=== PATIENT | male | born 1960 | race Caucasian/White ===

== ENCOUNTER 2017-05-04 10:48 | Outpatient (CLI) | payer OTHER, BC | END 2017-05-04 10:49 | disposition critical access hospital (66) | LOC: EMS 10:48 | PROVIDERS: ATTEND Surgery | DX: R07.9 Chest pain, unspecified (principal); V49.40XA Driver injured in collision with unspecified motor vehicles in traffic accident, initial encounter; Y92.414 Local residential or business street as the place of occurrence of the external cause | CPT/HCPCS: A0425; A0429 ==

== ENCOUNTER 2017-05-04 11:03 | Emergency (ER) | payer OTHER, BC ==
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
[2017-05-04] MEDS ORDERED: IBUPROFEN 600 MG TABLET PO STA (11:28)
[2017-05-04] MEDS ORDERED: ACETAMINOPHEN 325 MG TABLET PO STA (11:29)
[2017-05-04] MEDS ORDERED: IBUPROFEN 600 MG TABLET PO ONE (11:40)
[2017-05-04] MEDS ORDERED: ACETAMINOPHEN 325 MG TABLET PO ONE (11:40)
--- NOTE | 2017-05-04 12:38 | XRAY Preliminary Report ---
Exam: XR Chest 2 View PA/LAT IMPRESSION: Minimal bibasilar atelectasis, not present 05/03/2016. Otherwise no acute abnormality or change from the prior examination. [facility] SITE ID: [id number]
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
--- NOTE | 2017-05-04 12:41 | XRAY Preliminary Report ---
Exam: XR Cervical Spine 2 View IMPRESSION: Normal examination of the cervical spine. Bilateral carotid atherosclerosis. [facility] SITE ID: [id number]
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
[2017-05-04 12:53] VITALS: BP 146/87
== END 2017-05-04 13:14 | disposition home or self-care (01) ==
LOC: EDUNIT# → ED 11:03
DX: S20.219A Contusion of unspecified front wall of thorax, initial encounter (principal); S80.212A Abrasion, left knee, initial encounter; M54.2 Cervicalgia; V43.52XA Car driver injured in collision with other type car in traffic accident, initial encounter; W22.11XA Striking against or struck by driver side automobile airbag, initial encounter; Y92.410 Unspecified street and highway as the place of occurrence of the external cause; I10 Essential (primary) hypertension; E11.9 Type 2 diabetes mellitus without complications; Z79.4 Long term (current) use of insulin; Z79.82 Long term (current) use of aspirin
CPT/HCPCS: 71020; 72040; 99283; 99284; A9270

== ENCOUNTER 2017-05-20 10:54 | Outpatient (CLI) | payer BC | END 2017-05-20 10:55 | disposition critical access hospital (66) | LOC: EMS 10:54 | PROVIDERS: ATTEND Surgery | DX: R07.9 Chest pain, unspecified (principal) | CPT/HCPCS: A0425; A0429 ==

== ENCOUNTER 2017-05-20 11:21 | Emergency (ER) | payer BC ==
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
[2017-05-20 12:02] LABS: BASOPHILS % (AUTO) 0.9 %; EOSINOPHILS # (AUTO) 0.4 10^3/uL (0.0-0.7); EOSINOPHILS % (AUTO) 7.6 %; HCT - HEMATOCRIT 42.9 % (42.0-52.0); HGB - HEMOGLOBIN 14.8 g/dL (14.0-18.0); LYMPHOCYTES # (AUTO) 1.7 10^3/uL (1.5-3.5); LYMPHOCYTES % (AUTO) 32.7 %; MEAN CORPUSCULAR HEMOGLOBIN 31.5 pg (27.0-31.0); MEAN CORPUSCULAR HGB CONC 34.4 g/dL (32.0-36.0); MEAN CORPUSCULAR VOLUME 91.5 fL (80.0-94.0); MEAN PLATELET VOLUME 6.9 fL (7.4-11.4); MONOCYTES # (AUTO) 0.3 10^3/uL (0.0-1.0); MONOCYTES % (AUTO) 6.4 %; NEUTROPHILS # (AUTO) 2.7 10^3/uL (1.5-6.6); NEUTROPHILS % (AUTO) 52.4 %; RED BLOOD COUNT 4.69 10^6/uL (4.70-6.10); RED CELL DISTRIBUTION WIDTH 12.4 % (12.0-15.0); UNCORRECTED WHITE BLOOD COUNT 5.1 x10^3/uL; WHITE BLOOD COUNT 5.1 x10^3/uL (4.8-10.8)
[2017-05-20 12:16] LABS: BILIRUBIN,TOTAL 0.5 mg/dL (0.2-1.0); CALCIUM 9.9 mg/dL (8.5-10.3); POTASSIUM 4.4 mmol/L (3.5-5.0); TOTAL PROTEIN 7.7 g/dL (6.7-8.2)
--- NOTE | 2017-05-20 12:40 | XRAY Preliminary Report ---
Exam: XR Chest 1 View IMPRESSION: No acute intrathoracic plain film abnormality. [facility] SITE ID: [id number]
--- NOTE | 2017-05-20 12:42 | XRAY Report ---
EXAM: CHEST RADIOGRAPHY EXAM DATE: 05/20/2017 11:57 AM. CLINICAL HISTORY: Chest pain. COMPARISON: 05/04/2017. TECHNIQUE: 1 view. FINDINGS: Lungs/Pleura: No focal opacities evident. No pleural effusion. No pneumothorax. Mediastinum: Within exam limitations, cardiomediastinal contour is normal. Other: None. IMPRESSION: No acute intrathoracic plain film abnormality. [facility] Referring Provider Line: [phone] SITE ID: [id number]
[2017-05-20] MEDS ORDERED: INSULIN REGULAR HUMAN 100 UNIT/1 ML 10 ML MDV SUBQ STA (15:50)
[2017-05-20] MEDS ORDERED: INSULIN REGULAR HUMAN 100 UNIT/1 ML 10 ML MDV ONE (16:18)
[2017-05-20] MEDS ORDERED: clonazePAM 0.5 MG TABLET PO STA (22:00)
[2017-05-20] MEDS ORDERED: amLODIPine 5 MG TABLET PO STA (22:00)
[2017-05-20] MEDS ORDERED: LITHIUM 150 MG CAPSULE PO STA (22:00)
[2017-05-20] MEDS ORDERED: amLODIPine 5 MG TABLET ONE (23:04)
[2017-05-20] MEDS ORDERED: LITHIUM 150 MG CAPSULE PO ONE (23:04)
[2017-05-20] MEDS ORDERED: clonazePAM 0.5 MG TABLET PO ONE (23:04)
[2017-05-20] MEDS ORDERED: INSULIN GLARGINE 300 UNIT/3 ML PEN SUBQ ONE (23:05)
--- NOTE | 2017-05-21 06:51 | ED Physician Documentation ---
ED Addendum - Addendum Addendum: 05/21/17 06:48 Patient accepted at Psych facility but the facility wanted insurance verification prior to his being sent. The insurance company office was closed, with nurse trying to get it done after SW left. Unable to get the verification until insurance office open in the morning. He was Rx his usual nighttime meds. He slept /rested through the night without problems. Will be getting him breakfast.
[2017-05-21] MEDS ORDERED: LISINOPRIL 5 MG TABLET PO STA (07:07)
[2017-05-21] MEDS ORDERED: LISINOPRIL 5 MG TABLET ONE (08:41)
[2017-05-21 11:32] VITALS: BP 144/86
[2017-05-21] MEDS ORDERED: INSULIN GLARGINE 300 UNIT/3 ML PEN SUBQ SCH (21:00)
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
== END 2017-05-21 12:45 ==
LOC: EDUNIT# → ED 11:21
DX: F32.9 Major depressive disorder, single episode, unspecified (principal); S20.219A Contusion of unspecified front wall of thorax, initial encounter; V89.2XXA Person injured in unspecified motor-vehicle accident, traffic, initial encounter; Y92.488 Other paved roadways as the place of occurrence of the external cause; E11.9 Type 2 diabetes mellitus without complications; Z79.4 Long term (current) use of insulin; I10 Essential (primary) hypertension; E78.00 Pure hypercholesterolemia, unspecified; Z87.442 Personal history of urinary calculi; Z79.82 Long term (current) use of aspirin
CPT/HCPCS: 36415; 71010; 80053; 80306; 83690; 84484; 85025; 93005; 96374; 99285; A9270; J1815

== ENCOUNTER 2017-06-09 17:49 | Emergency (ER) | payer BC ==
[2017-06-09] MEDS ORDERED: ONDANSETRON 4 MG/2 ML VIAL IVP STA (18:30)
[2017-06-09] MEDS ORDERED: KETOROLAC 60 MG/2 ML VIAL IVP STA (18:30)
[2017-06-09] MEDS ORDERED: SODIUM CHLORIDE 0.9% 1,000 ML IV ONE (18:30)
[2017-06-09] MEDS ORDERED: HYDROmorphone 1 MG/ML SYRINGE ONE (18:30)
[2017-06-09] MEDS ORDERED: KETOROLAC 30 MG/ML VIAL ONE (18:30)
[2017-06-09] MEDS ORDERED: HYDROmorphone 1 MG/ML SYRINGE IVP STA (18:30)
[2017-06-09] MEDS ORDERED: ONDANSETRON 4 MG/2 ML VIAL ONE (18:30)
[2017-06-09 18:36] LABS: BASOPHILS % (AUTO) 0.3 %; EOSINOPHILS # (AUTO) 0.1 10^3/uL (0.0-0.7); EOSINOPHILS % (AUTO) 1.2 %; HCT - HEMATOCRIT 47.7 % (42.0-52.0); HGB - HEMOGLOBIN 16.3 g/dL (14.0-18.0); LYMPHOCYTES # (AUTO) 1.8 10^3/uL (1.5-3.5); LYMPHOCYTES % (AUTO) 17.6 %; MEAN CORPUSCULAR HEMOGLOBIN 31.5 pg (27.0-31.0); MEAN CORPUSCULAR HGB CONC 34.3 g/dL (32.0-36.0); MEAN CORPUSCULAR VOLUME 91.9 fL (80.0-94.0); MONOCYTES # (AUTO) 0.8 10^3/uL (0.0-1.0); MONOCYTES % (AUTO) 7.8 %; NEUTROPHILS # (AUTO) 7.6 10^3/uL (1.5-6.6); NEUTROPHILS % (AUTO) 73.1 %; RED BLOOD COUNT 5.19 10^6/uL (4.70-6.10); RED CELL DISTRIBUTION WIDTH 12.7 % (12.0-15.0); UNCORRECTED WHITE BLOOD COUNT 10.3 x10^3/uL; WHITE BLOOD COUNT 10.3 x10^3/uL (4.8-10.8)
[2017-06-09 18:51] LABS: ALBUMIN/GLOBULIN RATIO 1.2 (1.0-2.2); BILIRUBIN,TOTAL 0.6 mg/dL (0.2-1.0); CREATININE 1.3 mg/dL (0.6-1.2); POTASSIUM 3.9 mmol/L (3.5-5.0)
--- NOTE | 2017-06-09 18:57 | ED Physician Documentation ---
PD HPI ABD PAIN - Stated complaint Stated Complaint: MALE - Chief complaint Chief Complaint: Abd Pain - History obtained from History obtained from: Patient - History of Present Illness Timing - onset: How many hours ago (3) Timing - duration: Hours (3) Timing - details: Abrupt onset Pain level max: 10 Pain level now: 10 Quality: Aching, Pain Radiation: Other (L testicle) Improved by: Other (nothing) Worsened by: Other (nothing) Associated symptoms: Nausea. No: Fever, Vomiting, Hematemesis, Diarrhea, Constipation, Melena, Hematochezia, Dysuria Similar symptoms before: Diagnosis (kidney stones) Recently seen: Not recently seen Review of Systems Constitutional: denies: Fever, Chills Respiratory: denies: Cough GI: denies: Vomiting Skin: denies: Rash Musculoskeletal: denies: Neck pain, Back pain Neurologic: denies: Focal weakness, Numbness, Headache PD PAST MEDICAL HISTORY - Past Medical History Past Medical History: Yes Cardiovascular: Hypertension, High cholesterol Endocrine/Autoimmune: Type 2 diabetes : Kidney stones Psych: Depression, Anxiety - Past Surgical History Past Surgical History: Yes HEENT: Tonsil/Adenoidectomy - Present Medications Home Medications: Ambulatory Orders Medication Instructions Recorded Confirmed Acetaminophen [Tylenol] 650 mg PO BID 11/15/13 05/20/17 Aspirin [Brittaney] 162 mg PO ONCE 11/15/13 05/20/17 Atorvastatin Calcium 40 mg PO DAILY 11/15/13 05/20/17 FLUoxetine [PROzac] 40 mg PO DAILY 11/15/13 05/20/17 Gemfibrozil [Lopid] 600 mg PO BIDAC 11/15/13 05/20/17 Insulin Glargine,Hum.rec.anlog 100 unit SQ QPM 11/15/13 05/20/17 [Lantus] Lisinopril 20 mg PO DAILY 11/15/13 05/20/17 Loratadine [Claritin] 10 mg PO ONCE 11/15/13 05/20/17 Cholecalciferol [Vitamin D3] 2 cap ORAL DAILY 05/20/17 05/20/17 Clonazepam 1 mg PO DAILY PM 05/20/17 05/20/17 DULoxetine [Cymbalta] 90 mg ORAL DAILY 05/20/17 05/20/17 Fluconazole 100 mg ORAL DAILY 05/20/17 05/20/17 [place] 450 mg ORAL DAILY PM 05/20/17 05/20/17 amLODIPine [Norvasc] 5 mg ORAL DAILY 05/20/17 05/20/17 Ondansetron Odt [Zofran] 4 mg TL Q6H PRN #10 tablet 06/09/17 Oxycodone HCl/Acetaminophen 1 - 2 each PO Q6H PRN #14 tablet 06/09/17 [Percocet 5-325 mg Tablet] - Allergies Allergies/Adverse Reactions: Allergies Allergy/AdvReac Type Severity Reaction Status Date / Time Sulfa (Sulfonamide Allergy Hives Verified 06/09/17 17:59 Antibiotics) metformin AdvReac Unknown Verified 06/09/17 17:59 - Social History Does the pt smoke?: No Smoking Status: Never smoker Does the pt drink ETOH?: No Does the pt have substance abuse?: No - Immunizations Immunizations are current?: No Immunizations: TDAP >10years/unknown - POLST Patient has POLST: No PD ED PE NORMAL - Vitals Vital signs reviewed: Yes - General General: Alert and oriented X 3, No acute distress - HEENT HEENT: Moist mucous membranes - Neck Neck: Supple, no meningeal sign - Cardiac Cardiac: RRR, Strong equal pulses - Respiratory Respiratory: No respiratory distress, Clear bilaterally - Abdomen Abdomen: Soft, Non tender, Non distended - Back Back: No CVA TTP, No spinal TTP - Derm Derm: Warm and dry, No rash - Neuro Neuro: Alert and oriented X 3 - Psych Psych: Normal mood, Normal affect Results - Vitals Vitals: Vital Signs - 24 hr 06/09/17 06/09/17 06/09/17 17:57 18:38 18:58 Temperature 36.6 C Heart Rate 110 H 100 94 Respiratory 20 18 18 Rate Blood Pressure 159/100 H 144/97 H 153/89 H O2 Saturation 100 100 93 06/09/17 21:20 Temperature Heart Rate 86 Respiratory 16 Rate Blood Pressure 126/72 O2 Saturation 99 Oxygen O2 Source Room air - Labs Labs: Laboratory Tests 06/09/17 06/09/17 06/09/17 18:09 18:09 18:58 WBC 10.3 RBC 5.19 Hgb 16.3 Hct 47.7 MCV 91.9 MCH 31.5 H MCHC 34.3 RDW 12.7 Plt Count 301 MPV 7.0 L Neut # 7.6 H Lymph # 1.8 [place] # 0.8 Eos # 0.1 Baso # 0.0 Absolute Nucleated RBC 0.00 Nucleated RBCs 0.0 Sodium 136 Potassium 3.9 Chloride 96 L Carbon Dioxide 29 Anion Gap 11.0 BUN 13 Creatinine 1.3 H Estimated GFR (MDRD) 57 L Glucose 348 H Calcium 10.0 Total Bilirubin 0.6 AST 18 ALT 22 Alkaline Phosphatase 147 H Total Protein 8.0 Albumin 4.4 Globulin 3.6 Albumin/Globulin Ratio 1.2 Lipase 19 L Urine Color YELLOW Urine Clarity HAZY Urine pH 5.5 Ur Specific [place] 1.025 Urine Protein 30 H Urine Glucose (UA) 500 H Urine Ketones TRACE Urine Occult Blood NEGATIVE Urine Nitrite NEGATIVE Urine Bilirubin NEGATIVE Urine Urobilinogen 0.2 (NORMAL) Ur Leukocyte Esterase NEGATIVE Urine RBC 0-5 Urine WBC 0-3 Ur Squamous Epith Cells FEW Squamous Urine Bacteria Rare Urine Mucus Few Strands Ur Microscopic Review INDICATED Urine Culture Comments NOT INDICATED - Rads (name of study) CT abd/pelvis Radiology: Prelim report reviewed, EMP read contemporaneously, See rad report ( Obstructing 6 mm left ureteral stone at the L4-L5 level with left hydronephrosis. Small bilateral intrarenal stones and bilateral renal cysts noted. Healing anterior rib fractures and chronic T12 compression fracture noted. ) PD MEDICAL DECISION MAKING - ED course Complexity details: reviewed results, re-evaluated patient, considered differential, d/w patient ED course: Patient is a 57-year-old male who presents to the emergency department with a ureteral stone. Placed on pain medication here and pain resolved. No evidence of UTI. No evidence of pyelonephritis. Will place on pain medication for home and follow-up with his doctor. He is very well-appearing, nontoxic. Afebrile. Patient counseled regarding signs and symptoms for which I believe and urgent re-evaluation would be necessary. Patient with good understanding of and agreement to plan and is comfortable going home at this time This document was made in part using voice recognition software. While efforts are made to proofread this document, sound alike and grammatical errors may occur. Departure - Departure Disposition: 01 Home, Self Care Clinical Impression: Ureteral stone Condition: Good Instructions: ED Stone Renal W Colic Follow-Up: De Walls MD [Primary Care Provider] - Within 1 week Prescriptions: Oxycodone HCl/Acetaminophen [Percocet 5-325 mg Tablet] 1 - 2 each PO Q6H PRN # 14 tablet PRN Reason: pain Ondansetron Odt [Zofran] 4 mg TL Q6H PRN #10 tablet PRN Reason: Nausea / Vomiting Comments: Return if you worsen. You have a 6 mm ureteral stone. This will likely pass on its own. Return immediately if you develop intractable pain or fevers. Do not drink alcohol or drive while on narcotic pain medicine. Note that many narcotic pain relievers also contain tylenol/acetaminophen. Please ensure that your total dose of acetaminophen from all sources does not exceed 3 grams (3000mg) per day. You may constipated on this medication, take a stool softener such as "Colace" twice a day while you are on it. Also recommend a [id number]-vfe-xtzmczy laxative such as senna or MiraLAX any day that you do not have a bowel movement. If you received narcotic pain medication in the emergency department, do not drive or operate machinery for the next 24 hours. Your blood pressure was elevated today on check in to the emergency department. This does not mean that you have hypertension, it is a common phenomenon to check into the emergency department and have elevated blood pressure. I recommend that you see your primary care physician within the week to have it rechecked when you're feeling better. Discharge Date/Time: 06/09/17 21:20
[2017-06-09 19:10] LABS: BILIRUBIN,URINE NEGATIVE (NEGATIVE); PH,URINE 5.5 PH (5.0-7.5)
[2017-06-09 19:13] LABS: UA w/ MICROSCOPIC CHARGE YES
[2017-06-09 19:17] LABS: UR CULTURE IF IND NOT INDICATED; WBC,URINE 0-3 /HPF (0-3)
--- NOTE | 2017-06-09 20:53 | CT Preliminary Report ---
Exam: CT Abdomen/Pelvis W/O IMPRESSION: 1. Obstructing 6 mm left ureteral stone at the L4-L5 level with left hydronephrosis. 2. Small bilateral intrarenal stones and bilateral renal cysts noted. 3. Healing anterior rib fractures and chronic T12 compression fracture noted. [facility] SITE ID: [id number]
--- NOTE | 2017-06-09 20:55 | CT Report ---
EXAM: CT ABDOMEN AND PELVIS (CT KUB) EXAM DATE: 06/09/2017 08:20 PM. CLINICAL HISTORY: Left flank pain. History of renal stones. COMPARISONS: 05/10/2009. TECHNIQUE: Routine axial helical CT imaging was performed through the abdomen and pelvis without IV c ontrast. Reconstructions: Coronal and sagittal. In accordance with CT protocol optimization, one or more of the following dose reduction techniques w ere utilized for this exam: automated exposure control, adjustment of mA and/or KV based on patient s ize, or use of iterative reconstructive technique. FINDINGS: Lung Bases: Advanced coronary artery calcification noted. Right Kidney/Ureter: Intrarenal stones noted up to 3 mm size. Lower pole 6 cm cyst. No hydronephrosis or hydroureter. No perinephric fat stranding. Left Kidney/Ureter: Hydronephrosis and upper hydroureter due to an obstructing 6 mm stone at the L4-L 5 level. Intrarenal stones up to 3 mm size. Posterior 3.2 cm upper pole cyst. Lateral lower pole 1.8 cm cyst. Other Solid Organs: Noncontrast images of the solid organs are grossly unremarkable. Gallbladder/Bile Ducts: Unremarkable. Peritoneal Cavity: No free fluid, free air or anibal adenopathy. Bowel is grossly unremarkable. Pelvic Organs: No bladder stones or wall thickening. Noncontrast images of the visualized pelvic orga ns are unremarkable. Vasculature: Unremarkable. Other: Healing bilateral anterior rib fractures noted suggesting prior CPR. Chronic T12 compression f racture noted. Fat-containing umbilical hernia noted. IMPRESSION: 1. Obstructing 6 mm left ureteral stone at the L4-L5 level with left hydronephrosis. 2. Small bilateral intrarenal stones and bilateral renal cysts noted. 3. Healing anterior rib fractures and chronic T12 compression fracture noted. [facility] Referring Provider Line: [phone] SITE ID: [id number]
[2017-06-09] MEDS ORDERED: oxyCODONE/ACET 5/325 Prepack 4 PO STA (21:07)
[2017-06-09] MEDS ORDERED: oxyCODONE/ACET 5/325 Prepack 4 PO ONE (21:09)
[2017-06-09 21:22] VITALS: BP 126/72
== END 2017-06-09 21:20 | disposition home or self-care (01) ==
LOC: ED 17:49
DX: N20.1 Calculus of ureter (principal); I10 Essential (primary) hypertension; E11.8 Type 2 diabetes mellitus with unspecified complications; Z79.4 Long term (current) use of insulin; Z79.82 Long term (current) use of aspirin
CPT/HCPCS: 36415; 74176; 80053; 81001; 83690; 85025; 96374; 96375; 99283; 99284; J1170; 81003; 87086

== ENCOUNTER 2017-10-13 03:10 | Emergency (ER) | payer BC, OTHER ==
[2017-10-13 03:31] LABS: BILIRUBIN,URINE NEGATIVE (NEGATIVE)
[2017-10-13 03:44] LABS: UA w/ MICROSCOPIC CHARGE YES
[2017-10-13 03:45] LABS: UR CULTURE IF IND NOT INDICATED; WBC,URINE 0-3 /HPF (0-3)
[2017-10-13] MEDS ORDERED: KETOROLAC 60 MG/2 ML VIAL IVP STA (03:59)
[2017-10-13] MEDS ORDERED: ONDANSETRON 4 MG/2 ML VIAL IVP STA (04:00)
[2017-10-13] MEDS ORDERED: ONDANSETRON 4 MG/2 ML VIAL ONE (04:33)
[2017-10-13] MEDS ORDERED: KETOROLAC 30 MG/ML VIAL ONE (04:34)
--- NOTE | 2017-10-13 04:46 | CT Preliminary Report ---
Exam: CT ABDOMEN/PELVIS W/O IMPRESSION: 1. Moderately obstructing 7 mm stone in the left ureter overlying the sacrum. 2. Nonobstructing stones in both kidneys. [facility] SITE ID: [id number]
--- NOTE | 2017-10-13 04:48 | CT Report ---
EXAM: CT ABDOMEN AND PELVIS (CT KUB) EXAM DATE: 10/13/2017 04:26 AM. CLINICAL HISTORY: Left flank pain; history of kidney stones. COMPARISONS: 06/09/2017. TECHNIQUE: Routine axial helical CT imaging was performed through the abdomen and pelvis without IV c ontrast. Reconstructions: Coronal and sagittal. In accordance with CT protocol optimization, one or more of the following dose reduction techniques w ere utilized for this exam: automated exposure control, adjustment of mA and/or KV based on patient s ize, or use of iterative reconstructive technique. FINDINGS: Lung Bases: No focal consolidation. Coronary artery calcifications. Trace pericardial effusion. Right Kidney/Ureter: There are 2 nonobstructing renal stones measuring up to 3 mm. No ureteral stone or obstructive uropathy identified. Lower pole cyst measuring 5.9 cm. Left Kidney/Ureter: Approximately 4 nonobstructing renal stones measuring up to 5 mm. Cysts measuring up to 3.2 cm. Moderately obstructing ureteral stone overlying the sacrum, measuring 7 x 7 mm. Other Solid Organs: Noncontrast images of the solid organs are grossly unremarkable. Gallbladder/Bile Ducts: Unremarkable. Peritoneal Cavity: No bowel obstruction seen. No diverticulitis. No free air or free fluid. No lympha denopathy. Small umbilical hernia again seen containing fat and a knuckle of bowel, with no obstructi on or incarceration. Pelvic Organs: Decompressed urinary bladder with wall thickening. Visualized pelvic organs are otherw ise unremarkable. Vasculature: Moderate atherosclerosis. No aortic aneurysm. Other: Grade 1 degenerative spondylolisthesis at L5-S1. Degenerative changes and old fractures in the spine appear stable compared with prior CT. IMPRESSION: 1. Moderately obstructing 7 mm stone in the left ureter overlying the sacrum. 2. Nonobstructing stones in both kidneys. [facility] Referring Provider Line: [phone] SITE ID: [id number]
--- NOTE | 2017-10-13 05:19 | ED Physician Documentation ---
PD HPI ABD PAIN - Stated complaint Stated Complaint: LT FLANK,GROIN PAIN - Chief complaint Chief Complaint: General - History obtained from History obtained from: Patient - History of Present Illness Timing - onset: Last night Timing - details: Still present Quality: Pain Location: Other (Left flank.) Radiation: Other (Left groin.) Associated symptoms: Nausea. No: Fever, Vomiting, Diarrhea Similar symptoms before: Diagnosis (Reports history of kidney stones, and is status post surgical intervention for kidney stones twice in the past.) - Additional information Additional information: The patient is a 57-year-old diabetic male with history of kidney stones, who presents with left flank pain radiating to the left groin. His pain started last night and became worse just prior to arrival.. He reports associated nausea, but denies vomiting. He denies fever or dysuria. He has had multiple kidney stones in the past, for which he has undergone surgical intervention twice in the past. His last kidney stone was diagnosed 4 months ago, with CT scan revealing a 6 mm stone in the left ureter. Although he is diabetic he does not take the insulin that has been prescribed for him. The reason he states for not taking it is that he does not like checking his blood sugars. Review of Systems Constitutional: denies: Fever Nose: denies: Congestion Throat: denies: Sore throat Cardiac: denies: Chest pain / pressure Respiratory: denies: Dyspnea, Cough GI: reports: Abdominal Pain (left flank), Nausea. denies: Vomiting : denies: Dysuria, Hematuria Skin: denies: Rash Musculoskeletal: reports: Back pain (left flank). denies: Extremity pain Neurologic: denies: Headache PD PAST MEDICAL HISTORY - Past Medical History Past Medical History: Yes Cardiovascular: Hypertension, High cholesterol Endocrine/Autoimmune: Type 2 diabetes : Kidney stones HEENT: Glaucoma Psych: Depression, Anxiety - Past Surgical History Past Surgical History: Yes HEENT: Tonsil/Adenoidectomy - Present Medications Home Medications: Ambulatory Orders Medication Instructions Recorded Confirmed Acetaminophen [Tylenol] 650 mg PO BID 11/15/13 10/13/17 Aspirin [Br[place]aney] 162 mg PO ONCE 11/15/13 10/13/17 Atorvastatin Calcium 40 mg PO DAILY 11/15/13 10/13/17 FLUoxetine [PROzac] 40 mg PO DAILY 11/15/13 10/13/17 Gemfibrozil [Lopid] 600 mg PO BIDAC 11/15/13 10/13/17 Lisinopril 20 mg PO DAILY 11/15/13 10/13/17 Loratadine [Claritin] 10 mg PO ONCE 11/15/13 10/13/17 Cholecalciferol [Vitamin D3] 2 cap ORAL DAILY 05/20/17 10/13/17 DULoxetine [Cymbalta] 90 mg ORAL DAILY 05/20/17 10/13/17 Fluconazole 100 mg ORAL DAILY 05/20/17 10/13/17 [place] 450 mg ORAL DAILY PM 05/20/17 10/13/17 amLODIPine [Norvasc] 5 mg ORAL DAILY 05/20/17 10/13/17 clonazePAM [Clonazepam] 1 mg PO DAILY PM 05/20/17 10/13/17 Ondansetron Odt [Zofran] 4 mg TL Q6H PRN #10 tablet 06/09/17 10/13/17 Tamsulosin [Flomax] 0.4 mg PO DAILY #7 capsule 10/13/17 oxyCODONE/ACET 5/325 [Percocet 5 1 - 2 tab PO Q4-6H PRN #15 tablet 10/13/17 mg/325 mg] - Allergies Allergies/Adverse Reactions: Allergies Allergy/AdvReac Type Severity Reaction Status Date / Time Sulfa (Sulfonamide Allergy Hives Verified 10/13/17 03:16 Antibiotics) metformin AdvReac Unknown Verified 10/13/17 03:16 - Social History Does the pt smoke?: No Smoking Status: Never smoker Does the pt drink ETOH?: No Does the pt have substance abuse?: No - Immunizations Immunizations are current?: No Immunizations: TDAP >10years/unknown - POLST Patient has POLST: No PD ED PE NORMAL - Vitals Vital signs reviewed: Yes (hypertensive) - General General: Alert and oriented X 3, Well developed/nourished - HEENT HEENT: Atraumatic, Pharynx benign - Neck Neck: No adenopathy, No JVD - Cardiac Cardiac: RRR, No murmur - Respiratory Respiratory: No respiratory distress, Clear bilaterally - Abdomen Abdomen: Soft, Non tender - Back Back: Other (Left CVA tenderness to percussion.) - Derm Derm: No rash - Extremities Extremities: No edema, No calf tenderness / cord - Neuro Neuro: Alert and oriented X 3, No motor deficit, Normal speech Results - Vitals Vitals: Oxygen O2 Source Room air - Labs Labs: Laboratory Tests 10/13/17 10/13/17 10/13/17 03:25 03:26 04:25 WBC 9.7 RBC 4.88 Hgb 15.2 Hct 45.1 MCV 92.4 MCH 31.0 MCHC 33.6 RDW 13.1 Plt Count 187 MPV 7.6 Neut # 6.5 Lymph # 2.0 [place] # 1.0 Eos # 0.2 Baso # 0.0 Absolute Nucleated RBC 0.00 Nucleated RBC % 0.0 Sodium Potassium Chloride Carbon Dioxide Anion Gap BUN Creatinine Estimated GFR (MDRD) Glucose POC Whole Bld Glucose 324 H Calcium Total Bilirubin AST ALT Alkaline Phosphatase Total Protein Albumin Globulin Albumin/Globulin Ratio Lipase Urine Color YELLOW Urine Clarity CLEAR Urine pH 6.0 Ur Specific [place] 1.020 Urine Protein 100 H Urine Glucose (UA) >=1000 H Urine Ketones NEGATIVE Urine Occult Blood MODERATE H Urine Nitrite NEGATIVE Urine Bilirubin NEGATIVE Urine Urobilinogen 0.2 (NORMAL) Ur Leukocyte Esterase NEGATIVE Urine RBC 0-5 Urine WBC 0-3 Ur Squamous Epith Cells RARE Squamous Urine Bacteria None Seen Ur Microscopic Review INDICATED Urine Culture Comments NOT INDICATED 10/13/17 10/13/17 10/13/17 04:25 05:50 05:51 WBC RBC Hgb Hct MCV MCH MCHC RDW Plt Count MPV Neut # Lymph # [place] # Eos # Baso # Absolute Nucleated RBC Nucleated RBC % Sodium 131 L Potassium 4.1 Chloride 98 L Carbon Dioxide 24 Anion Gap 9.0 BUN 21 H Creatinine 1.2 Estimated GFR (MDRD) 63 L Glucose 329 H POC Whole Bld Glucose 372 H 374 H Calcium 9.1 Total Bilirubin 0.4 AST 15 ALT 16 Alkaline Phosphatase 107 Total Protein 7.4 Albumin 3.8 Globulin 3.6 Albumin/Globulin Ratio 1.1 Lipase 19 L Urine Color Urine Clarity Urine pH Ur Specific [place] Urine Protein Urine Glucose (UA) Urine Ketones Urine Occult Blood Urine Nitrite Urine Bilirubin Urine Urobilinogen Ur Leukocyte Esterase Urine RBC Urine WBC Ur Squamous Epith Cells Urine Bacteria Ur Microscopic Review Urine Culture Comments 10/13/17 06:17 WBC RBC Hgb Hct MCV MCH MCHC RDW Plt Count MPV Neut # Lymph # [place] # Eos # Baso # Absolute Nucleated RBC Nucleated RBC % Sodium Potassium Chloride Carbon Dioxide Anion Gap BUN Creatinine Estimated GFR (MDRD) Glucose POC Whole Bld Glucose 339 H Calcium Total Bilirubin AST ALT Alkaline Phosphatase Total Protein Albumin Globulin Albumin/Globulin Ratio Lipase Urine Color Urine Clarity Urine pH Ur Specific [place] Urine Protein Urine Glucose (UA) Urine Ketones Urine Occult Blood Urine Nitrite Urine Bilirubin Urine Urobilinogen Ur Leukocyte Esterase Urine RBC Urine WBC Ur Squamous Epith Cells Urine Bacteria Ur Microscopic Review Urine Culture Comments - Rads (name of study) CT abd/pelvis w/o Radiology: Prelim report reviewed, EMP read contemporaneously, See rad report ( Moderately obstructing 7 mm stone in the left ureter overlying the sacrum. Nonobstructing stones in both kidneys.) PD MEDICAL DECISION MAKING - ED course Complexity details: reviewed old records, reviewed results, re-evaluated patient , considered differential, d/w patient, d/w application support consultant ED course: The patient's presentation is significant for left distal ureteral stone, which is visualized on CT scan. It is unclear whether this is the same stone that was visualized [address] scan, or if it is a new stone. There is no evidence to suggest pyelonephritis. In addition patient is a noncompliant diabetic and does not take his insulin. His initial blood sugar was elevated at 324. His urinalysis is positive for glucose urea, without ketonuria. Treatment in the emergency department included administration of ketorolac 30 mg IV, ondansetron 4 mg IV, and insulin 8 units IV. The patient's pain resolved with the above treatment, as it is nausea. I discussed his condition with Dr. Oviedo, urologist, who agrees to see the patient in outpatient clinic. He is being discharged with prescriptions for Flomax and for Percocet, 15 tablets. I discussed with him the diagnosis, importance of outpatient follow-up , as well as potentially worrisome signs or symptoms that should prompt reevaluation in the emergency department. Departure - Departure Disposition: 01 Home, Self Care Clinical Impression: Left ureteral calculus, Renal colic on left side Diabetes mellitus with hyperglycemia Qualifiers: Diabetes mellitus type: type 2 Diabetes mellitus penitentiary insulin use: without terminal operator use Qualified Code(s): E11.65 - Type 2 diabetes mellitus with hyperglycemia Condition: Stable Instructions: ED Stone Renal W Colic Follow-Up: De Walls MD [Provider Admit Priv/Credential] - Ya Oviedo MD [Physician No Access] - Prescriptions: oxyCODONE/ACET 5/325 [Percocet 5 mg/325 mg] 1 - 2 tab PO Q4-6H PRN #15 tablet PRN Reason: Pain Tamsulosin [Flomax] 0.4 mg PO DAILY #7 capsule Comments: Take Flomax daily as prescribed. You can use Percocet as prescribed if needed for pain. You should resume taking insulin as prescribed. Diabetes. Follow-up with the urologist for your kidney stone. Call today to schedule an appointment. Follow up with your primary physician regarding your diabetes and general medical care. Return to the emergency department if you develop increasing pain despite the pain medication, persistent vomiting, fever, or otherwise worsening symptoms. Discharge Date/Time: 10/13/17 06:21
[2017-10-13] MEDS ORDERED: INSULIN REGULAR HUMAN 100 UNIT/1 ML 10 ML MDV SUBQ STA (05:35)
[2017-10-13 05:46] LABS: BASOPHILS % (AUTO) 0.3 %; EOSINOPHILS # (AUTO) 0.2 10^3/uL (0.0-0.7); EOSINOPHILS % (AUTO) 2.1 %; HCT - HEMATOCRIT 45.1 % (42.0-52.0); HGB - HEMOGLOBIN 15.2 g/dL (14.0-18.0); LYMPHOCYTES % (AUTO) 20.5 %; MEAN CORPUSCULAR HGB CONC 33.6 g/dL (32.0-36.0); MEAN CORPUSCULAR VOLUME 92.4 fL (80.0-94.0); MEAN PLATELET VOLUME 7.6 fL (7.4-11.4); MONOCYTES % (AUTO) 10.3 %; NEUTROPHILS # (AUTO) 6.5 10^3/uL (1.5-6.6); NEUTROPHILS % (AUTO) 66.8 %; RED BLOOD COUNT 4.88 10^6/uL (4.70-6.10); RED CELL DISTRIBUTION WIDTH 13.1 % (12.0-15.0); UNCORRECTED WHITE BLOOD COUNT 9.7 x10^3/uL; WHITE BLOOD COUNT 9.7 x10^3/uL (4.8-10.8)
[2017-10-13] MEDS ORDERED: INSULIN REGULAR HUMAN 100 UNIT/1 ML 10 ML MDV ONE (05:52)
[2017-10-13 05:54] LABS: ALBUMIN/GLOBULIN RATIO 1.1 (1.0-2.2); BILIRUBIN,TOTAL 0.4 mg/dL (0.2-1.0); CALCIUM 9.1 mg/dL (8.5-10.3); CREATININE 1.2 mg/dL (0.6-1.2); POTASSIUM 4.1 mmol/L (3.5-5.0); TOTAL PROTEIN 7.4 g/dL (6.7-8.2)
[2017-10-13 06:15] VITALS: BP 152/88
== END 2017-10-13 06:21 | disposition home or self-care (01) ==
LOC: ED 03:10
DX: N20.2 Calculus of kidney with calculus of ureter (principal); Z87.442 Personal history of urinary calculi; E11.65 Type 2 diabetes mellitus with hyperglycemia; I10 Essential (primary) hypertension; E78.00 Pure hypercholesterolemia, unspecified; Z79.82 Long term (current) use of aspirin
CPT/HCPCS: 36415; 74176; 80053; 81001; 83690; 85025; 96372; 96374; 96375; 99283; 99284; J1815; 81003; 87086

== ENCOUNTER 2018-04-19 10:33 | Emergency (ER) | payer BC ==
[2018-04-19] MEDS ORDERED: KETOROLAC 60 MG/2 ML VIAL IVP STA (10:42)
[2018-04-19] MEDS ORDERED: LIDOCAINE-MPF 2% 7 ML in SODIUM CHLORIDE 0.9% 50 ML IV STA (10:42)
[2018-04-19] MEDS ORDERED: ONDANSETRON 4 MG/2 ML VIAL IVP STA (10:47)
--- NOTE | 2018-04-19 10:49 | ED Physician Documentation ---
History of Present Illness - Stated complaint Stated Complaint: KIDNEY PX - Chief complaint Chief Complaint: Abd Pain - History obtained from History obtained from: Patient - History of Present Illness Timing: Today Pain level max: 8 Pain level now: 8 Improved by: nothing Worsened by: nothing - Additonal information Additional information: Patient is a 58-year-old gentleman who presents to the emergency department with left flank pain that started today. Has a history of ureteral stones. Last was 7 mm. He states it was supposed to be removed, but they never did because he did not have anyone to stay with him. Denies any fevers, vomiting, chills. Denies any urinary symptoms. He does feel nauseated today. Took one Percocet this morning Review of Systems Constitutional: denies: Fever, Chills Nose: denies: Rhinorrhea / runny nose, Congestion Cardiac: denies: Chest pain / pressure Respiratory: denies: Cough GI: denies: Vomiting, Diarrhea : denies: Dysuria, Frequency, Hesitancy, Hematuria Skin: denies: Rash Musculoskeletal: denies: Neck pain Neurologic: denies: Headache PD PAST MEDICAL HISTORY - Past Medical History Past Medical History: Yes Cardiovascular: Hypertension, High cholesterol Endocrine/Autoimmune: Type 2 diabetes : Kidney stones HEENT: Glaucoma Psych: Depression, Anxiety - Past Surgical History Past Surgical History: Yes HEENT: Tonsil/Adenoidectomy - Present Medications Home Medications: Ambulatory Orders Medication Instructions Recorded Confirmed Acetaminophen [Tylenol] 650 mg PO BID 11/15/13 10/13/17 Aspirin [Brittaney] 162 mg PO ONCE 11/15/13 10/13/17 Atorvastatin Calcium 40 mg PO DAILY 11/15/13 10/13/17 FLUoxetine [PROzac] 40 mg PO DAILY 11/15/13 10/13/17 Gemfibrozil [Lopid] 600 mg PO BIDAC 11/15/13 10/13/17 Lisinopril 20 mg PO DAILY 11/15/13 10/13/17 Loratadine [Claritin] 10 mg PO ONCE 11/15/13 10/13/17 Cholecalciferol [Vitamin D3] 2 cap ORAL DAILY 05/20/17 10/13/17 DULoxetine [Cymbalta] 90 mg ORAL DAILY 05/20/17 10/13/17 Fluconazole 100 mg ORAL DAILY 05/20/17 10/13/17 [place] 450 mg ORAL DAILY PM 05/20/17 10/13/17 amLODIPine [Norvasc] 5 mg ORAL DAILY 05/20/17 10/13/17 clonazePAM [Clonazepam] 1 mg PO DAILY PM 05/20/17 10/13/17 Ondansetron Odt [Zofran] 4 mg TL Q6H PRN #10 tablet 06/09/17 10/13/17 Tamsulosin [Flomax] 0.4 mg PO DAILY #7 capsule 10/13/17 oxyCODONE/ACET 5/325 [Percocet 5 1 - 2 tab PO Q4-6H PRN #15 tablet 10/13/17 mg/325 mg] Ibuprofen [Motrin] 800 mg PO Q8H PRN #30 tablet 04/19/18 Oxycodone HCl/Acetaminophen 1 - 2 each PO Q6H PRN #14 tablet 04/19/18 [Percocet 5-325 mg Tablet] Tamsulosin [Flomax] 0.4 mg PO DAILY #7 capsule 04/19/18 - Allergies Allergies/Adverse Reactions: Allergies Allergy/AdvReac Type Severity Reaction Status Date / Time Sulfa (Sulfonamide Allergy Hives Verified 04/19/18 11:12 Antibiotics) metformin AdvReac Unknown Verified 04/19/18 11:12 - Social History Does the pt smoke?: No Smoking Status: Never smoker Does the pt drink ETOH?: No Does the pt have substance abuse?: No - Immunizations Immunizations are current?: No Immunizations: TDAP >10years/unknown - POLST Patient has POLST: No PD ED PE NORMAL - Vitals Vital signs reviewed: Yes - General General: Alert and oriented X 3, Well developed/nourished, Other (Appears in pain) - HEENT HEENT: Moist mucous membranes, Pharynx benign - Neck Neck: Supple, no meningeal sign - Cardiac Cardiac: RRR, Strong equal pulses - Respiratory Respiratory: No respiratory distress, Clear bilaterally - Abdomen Abdomen: Soft, Non tender, Non distended - Back Back: No CVA TTP, No spinal TTP - Derm Derm: Warm and dry - Extremities Extremities: No calf tenderness / cord - Neuro Neuro: Alert and oriented X 3 - Psych Psych: Normal mood, Normal affect Results - Vitals Vitals: Vital Signs - 24 hr 04/19/18 04/19/1804/19/18 10:36 11:08 11:19 Temperature 36.2 C L Heart Rate 104 H 101 H 100 Respiratory 16 16 18 Rate Blood Pressure 200/111 H 176/101 H 162/100 H O2 Saturation 97 96 95 04/19/18 04/19/18 04/19/18 12:14 13:10 14:00 Temperature 36.9 C Heart Rate 101 H 98 94 Respiratory 14 18 18 Rate Blood Pressure 156/100 H 152/100 H 179/111 H O2 Saturation 96 96 96 Oxygen O2 Source Room air - Labs Labs: Laboratory Tests 04/19/18 04/19/18 04/19/18 10:47 10:47 12:55 WBC 10.3 RBC 5.07 Hgb 16.0 Hct 46.0 MCV 90.6 MCH 31.6 H MCHC 34.9 RDW 14.1 Plt Count 194 MPV 6.8 L Neut # 7.1 H Lymph # 2.1 [place] # 0.9 Eos # 0.2 Baso # 0.0 Absolute Nucleated RBC 0.01 Nucleated RBC % 0.0 Sodium 136 Potassium 3.9 Chloride 98 L Carbon Dioxide 28 Anion Gap 10.0 BUN 18 Creatinine 1.4 H Estimated GFR (MDRD) 52 L Glucose 226 H Calcium 9.4 Total Bilirubin 0.7 AST 24 ALT 25 Alkaline Phosphatase 105 Total Protein 7.3 Albumin 4.0 Globulin 3.3 Albumin/Globulin Ratio 1.2 Lipase 22 Urine Color YELLOW Urine Clarity CLEAR Urine pH 6.0 Ur Specific [place] >=1.030 H Urine Protein 100 H Urine Glucose (UA) 100 H Urine Ketones NEGATIVE Urine Occult Blood MODERATE H Urine Nitrite NEGATIVE Urine Bilirubin NEGATIVE Urine Urobilinogen 0.2 (NORMAL) Ur Leukocyte Esterase NEGATIVE Urine RBC 6-10 H Urine WBC 0-3 Ur Squamous Epith Cells RARE Squamous Urine Bacteria Rare Urine Mucus Few Strands Ur Microscopic Review INDICATED Urine Culture Comments NOT INDICATED - Rads (name of study) CT abdomen and pelvis Radiology: Prelim report reviewed, EMP read contemporaneously, See rad report ( 6 mm distal left ureteral calculus approximately 2 cm proximal to the UVJ with associated moderate hydroureteronephrosis. 2. Bilateral nonobstructing renal calculi. 3. Bilateral renal cysts again demonstrated. 4. A 3.4 cm exophytic left renal lesion is nearly isodense to the kidney and may represent a mildly hyperdense cyst. However, it has progressed over several years and it is indeterminate on noncontrast CT imaging. Further evaluation by ultrasound or dedicated renal CT imaging with and without contrast could be performed. 5. Stable small periumbilical hernia containing fat and minimal small bowel. ) PD MEDICAL DECISION MAKING - ED course Complexity details: reviewed old records (Prior ED visit), reviewed results, re- evaluated patient, considered differential, d/w patient ED course: Patient is a 58-year-old male who presents to the emergency department with a left distal ureteral calculus. pain resolved with Toradol and IV lidocaine. Discussed the patient with findings of his abdominal CT including the 3.4 cm exophytic left renal lesion, possible a cyst, but need for follow-up is still present and recommend that he have an ultrasound or contrast renal CT for further characterization with his doctor. He is comfortable with this plan. Patient counseled regarding signs and symptoms for which I believe and urgent re -evaluation would be necessary. Patient with good understanding of and agreement to plan and is comfortable going home at this time This document was made in part using voice recognition software. While efforts are made to proofread this document, sound alike and grammatical errors may occur. Departure - Departure Disposition: 01 Home, Self Care Clinical Impression: Left ureteral calculus Condition: Good Instructions: ED Stone Renal W Colic Follow-Up: De Walls MD [Primary Care Provider] - Within 1 week Prescriptions: Ibuprofen [Motrin] 800 mg PO Q8H PRN #30 tablet PRN Reason: PAIN &/OR FEVER Oxycodone HCl/Acetaminophen [Percocet 5-325 mg Tablet] 1 - 2 each PO Q6H PRN # 14 tablet PRN Reason: pain Tamsulosin [Flomax] 0.4 mg PO DAILY #7 capsule Comments: Return if you worsen. It is important that you follow up with your doctor and urology for further care. Return immediately for uncontrolled pain, vomiting or fevers. Do not drink alcohol or drive while on narcotic pain medicine. Note that many narcotic pain relievers also contain tylenol/acetaminophen. Please ensure that your total dose of acetaminophen from all sources does not exceed 3 grams (3000mg) per day. You may constipated on this medication, take a stool softener such as "Colace" twice a day while you are on it. Also recommend a [id number] laxative such as senna or MiraLAX any day that you do not have a bowel movement. If you received narcotic pain medication in the emergency department, do not drive or operate machinery for the next 24 hours. Discharge Date/Time: 04/19/18 14:14
[2018-04-19 11:02] LABS: BASOPHILS % (AUTO) 0.3 %; EOSINOPHILS # (AUTO) 0.2 10^3/uL (0.0-0.7); EOSINOPHILS % (AUTO) 1.8 %; LYMPHOCYTES # (AUTO) 2.1 10^3/uL (1.5-3.5); LYMPHOCYTES % (AUTO) 20.7 %; MEAN CORPUSCULAR HEMOGLOBIN 31.6 pg (27.0-31.0); MEAN CORPUSCULAR HGB CONC 34.9 g/dL (32.0-36.0); MEAN CORPUSCULAR VOLUME 90.6 fL (80.0-94.0); MEAN PLATELET VOLUME 6.8 fL (7.4-11.4); MONOCYTES # (AUTO) 0.9 10^3/uL (0.0-1.0); MONOCYTES % (AUTO) 8.7 %; NEUTROPHILS # (AUTO) 7.1 10^3/uL (1.5-6.6); NEUTROPHILS % (AUTO) 68.5 %; PLT - PLATELET COUNT 194 10^3/uL (130-450); RED BLOOD COUNT 5.07 10^6/uL (4.70-6.10); RED CELL DISTRIBUTION WIDTH 14.1 % (12.0-15.0); WHITE BLOOD COUNT 10.3 x10^3/uL (4.8-10.8)
[2018-04-19 11:08] LABS: ALBUMIN/GLOBULIN RATIO 1.2 (1.0-2.2); BILIRUBIN,TOTAL 0.7 mg/dL (0.2-1.0); CALCIUM 9.4 mg/dL (8.5-10.3); CREATININE 1.4 mg/dL (0.6-1.2); TOTAL PROTEIN 7.3 g/dL (6.7-8.2)
--- NOTE | 2018-04-19 11:39 | CT Report ---
EXAM: CT ABDOMEN AND PELVIS (CT KUB) EXAM DATE: 04/19/2018 11:07 AM. CLINICAL HISTORY: L flank pain, h/o renal stones. COMPARISONS: None. TECHNIQUE: Routine axial helical CT imaging was performed through the abdomen and pelvis without IV c ontrast. Reconstructions: Coronal and sagittal. In accordance with CT protocol optimization, one or more of the following dose reduction techniques w ere utilized for this exam: automated exposure control, adjustment of mA and/or KV based on patient s ize, or use of iterative reconstructive technique. FINDINGS: Lung Bases: Stable small calcified pulmonary nodule/granulomas. Coronary artery calcifications redemo nstrated. Right Kidney/Ureter: 2 nonobstructing renal calculi, without change. Stable 6 cm lower pole cyst. No hydronephrosis or hydroureter. Stable mild perinephric stranding. Left Kidney/Ureter: Approximately 4 nonobstructing renal calculi again demonstrated measuring up to 5 mm. Moderate hydroureteronephrosis is again demonstrated. This is now secondary to a 6 mm distal ure teral calculus approximately 2 cm proximal to the UVJ. Moderate perinephric stranding redemonstrated. A 2.0 cm anterior lower pole cyst is without significant change comparing back to 05/10/2009. A 3.4 cm maximum diameter exophytic rounded lesion at the upper pole is nearly isodense to the kidney. On 12/13/2016 it measured 3.2 cm and on 05/10/2009 2.5 cm. This is indeterminate by noncontrast CT imagin g. Other Solid Organs: Noncontrast images of the solid organs are grossly unremarkable. Gallbladder/Bile Ducts: Unremarkable. Peritoneal Cavity: No free fluid, free air or anibal adenopathy. Bowel is grossly unremarkable. Pelvic Organs: No bladder stones or wall thickening. Noncontrast images of the visualized pelvic orga ns are unremarkable. Vasculature: Moderate calcifications, without aneurysm. Other: Stable, chronic moderate compression fracture of the T12 vertebral body. Stable superior endpl ate focal invagination at T11. No definite acute osseous abnormality. Hernia in the umbilical region containing fat and a minimal amount of small bowel is again demonstrated. No bowel dilatation/obstruc tion IMPRESSION: 1. 6 mm distal left ureteral calculus approximately 2 cm proximal to the UVJ with associated moderate hydroureteronephrosis. 2. Bilateral nonobstructing renal calculi. 3. Bilateral renal cysts again demonstrated. 4. A 3.4 cm exophytic left renal lesion is nearly isodense to the kidney and may represent a mildly h yperdense cyst. However, it has progressed over several years and it is indeterminate on noncontrast CT imaging. Further evaluation by ultrasound or dedicated renal CT imaging with and without contrast could be performed. 5. Stable small periumbilical hernia containing fat and minimal small bowel. [facility] Referring Provider Line: [phone] SITE ID: [id number]
[2018-04-19] MEDS ORDERED: SODIUM CHLORIDE 0.9% 1,000 ML IV ONE (11:41)
[2018-04-19 13:13] LABS: BILIRUBIN,URINE NEGATIVE (NEGATIVE); GLUCOSE, URINE (UA) 100 mg/dL (NEGATIVE); KETONES,URINE (UA) NEGATIVE (NEGATIVE); LEUKOCYTE ESTERASE, URINE NEGATIVE (NEGATIVE); NITRITE,URINE NEGATIVE (NEGATIVE); OCCULT BLOOD,URINE MODERATE (NEGATIVE); PROTEIN,URINE 100 mg/dL (NEGATIVE); UROBILINOGEN,URINE 0.2 (NORMAL) E.U./dL (NORMAL)
[2018-04-19 13:16] LABS: CLARITY,URINE CLEAR (CLEAR)
[2018-04-19 13:36] LABS: BACTERIA,URINE Rare /HPF (None Seen); SQUAMOUS EPITHELIAL CELL,UR RARE Squamous (<= Few)
[2018-04-19 13:37] LABS: MUCUS,URINE Few Strands
[2018-04-19 14:01] VITALS: BP 179/111
== END 2018-04-19 14:14 | disposition home or self-care (01) ==
LOC: ED 10:33
DX: N20.1 Calculus of ureter (principal); I10 Essential (primary) hypertension; E78.00 Pure hypercholesterolemia, unspecified; E11.9 Type 2 diabetes mellitus without complications; Z79.82 Long term (current) use of aspirin
CPT/HCPCS: 36415; 74176; 80053; 81001; 83690; 85025; 96361; 96374; 96375; 99284; J7040; 81003; 87086

== ENCOUNTER 2018-06-09 12:26 | Outpatient (CLI) | payer BC | END 2018-06-09 12:27 | disposition short-term general hospital (02) | LOC: EMS 12:26 | PROVIDERS: ATTEND Surgery | DX: R41.0 Disorientation, unspecified (principal); R47.9 Unspecified speech disturbances | CPT/HCPCS: A0425; A0427 ==